=== PATIENT | female | born 1985 | race Caucasian/White ===

== ENCOUNTER 2021-11-18 13:30 | Inpatient (IN) | payer MEDICAID ==
[~2021-11-18] VITALS: Ht 157.5 cm; Wt 56.7 kg
[2021-11-18 13:34] VITALS: BP 142/86
--- NOTE | 2021-11-18 13:40 | NUR ---
PT TO WAIT IN LOBBY PER SETTER MOLDING AND COREMAKING MACHINES.
--- NOTE | 2021-11-18 14:37 | NUR ---
PT AMBULATED TO ER BED 7 WITH STEADY GAIT PER POST DOC FELLOWSHIP.
[2021-11-18] MEDS ORDERED: KETOROLAC 30 MG/ML VIAL IM ONE (14:45)
--- NOTE | 2021-11-18 14:47 | NUR ---
36 Y/O FEMALE BIBA ORIGINALLY FOR "POSSIBLE OD" ACCORDING TO BYSTANDER. PT WAS STERNAL RUBBED BY MEDIC ON ARRIVAL. PT STATED SHE IS FROM REHAB FACILITY C/O RIGHT FLANK PAIN 09/18. PT STATES SHE WAS RECENTLY SEEN AND DX WITH PYELONEPHITIS PRESCRIBED ABX. DENIES N/V. DENIES FEVER/CHILLS. DENIES PMH NKA
--- NOTE | 2021-11-18 14:50 | NUR ---
URINE OBTAINED AND SENT TO LAB
[2021-11-18 15:09] LABS: BASOPHILS % (AUTO) 0.3 % (0.0-2.0); EOSINOPHILS % (AUTO) 0.3 % (0.0-4.0); HEMATOCRIT 23.2 % (36-48); HEMOGLOBIN 7.5 g/dL (12.0-16.0); LYMPHOCYTES # (AUTO) 1.5 K/uL (2.5-16.5); LYMPHOCYTES % (AUTO) 13.2 % (20.5-51.1); MEAN CORPUSCULAR HEMOGLOBIN 25 pg (27-31); MEAN CORPUSCULAR HGB CONC 32 g/dL (33-37); MEAN CORPUSCULAR VOLUME 77.5 fL (80-94); MONOCYTES # (AUTO) 0.8 K/uL (0.8-1.0); MONOCYTES % (AUTO) 6.6 % (1.7-9.3); NEUTROPHILS # (AUTO) 9.2 K/uL (1.8-7.7); NEUTROPHILS % (AUTO) 79.6 % (42.2-75.2); PLATELET COUNT (AUTO) 583 K/uL (140-450); RED CELL DISTRIBUTION WIDTH 17.6 % (11.6-13.7); WHITE BLOOD COUNT (AUTO) 11.5 K/uL (4.8-10.8)
--- NOTE | 2021-11-18 15:19 | NUR ---
PT ASLEEP IN BED. HOB ELEVATED. SIDE RAILS X1. RESP EVEN AND UNLABORED
[2021-11-18 15:26] LABS: ALBUMIN 2.7 g/dL (3.4-5.0); ANION GAP 13.7 (8-16); CARBON DIOXIDE 26.8 mmol/L (21-32); CREATININE 0.6 mg/dL (0.6-1.3); TOTAL BILIRUBIN 0.4 mg/dL (0.0-1.0)
[2021-11-18 15:29] LABS: POTASSIUM 2.5 mmol/L (3.5-5.1)
[2021-11-18] MEDS ORDERED: KCL 20 MEQ/WATER INJ PREMIX 200 ML IV ONE (15:30)
[2021-11-18] MEDS ORDERED: NACL 0.9% 1,000 ML IV ONE (15:35)
[2021-11-18 15:46] LABS: BILIRUBIN,URINE 2+ (NEGATIVE); BLOOD, URINE 1+ (NEGATIVE); LEUKOCYTE ESTERASE ,URINE TRACE (NEGATIVE); NITRITE, URINE NEGATIVE (NEGATIVE); UGLUCOSE NEGATIVE (NEGATIVE)
[2021-11-18 16:01] LABS: APPEARANCE,URINE HAZY (CLEAR); COLOR,URINE AMBER (YELLOW)
[2021-11-18 16:09] LABS: WBC,URINE 80-100 /HPF (0-5)
[2021-11-18] MEDS ORDERED: cefTRIAXone 1,000 MG VIAL ONE (16:54)
[2021-11-18] MEDS ORDERED: WATER STERILE 10 ML MC ONE (16:55)
--- NOTE | 2021-11-18 17:30 | NUR ---
PT TO CT
--- NOTE | 2021-11-18 17:54 | NUR ---
PT BACK FROM CT.
--- NOTE | 2021-11-18 18:25 | NUR ---
PATIENT IS SLEEPING . PT WILL BE ADMITTED TO TELE. PENDING ORDERS TO FOLLOW. K+ 2.5 AND NOTED. WILL CONTINUE TO MONITOR PATIENT
--- NOTE | 2021-11-18 19:00 | NUR ---
PT TAKENT TO CT VIA YANETH
--- NOTE | 2021-11-18 19:03 | NUR ---
PT TO CT
[2021-11-18] MEDS ORDERED: MORPHINE SULFATE 2 MG/ML SYR IVP PRN (19:15)
[2021-11-18] MEDS ORDERED: DOCUSATE SODIUM 100 MG GELCAP PO PRN (19:15)
[2021-11-18] MEDS ORDERED: POTASSIUM CHLORIDE 10 MEQ TABER PO PRN (19:15)
[2021-11-18] MEDS ORDERED: ONDANSETRON 4 MG/2 ML VIAL IVP PRN ×2 (19:15)
[2021-11-18] MEDS ORDERED: ACETAMINOPHEN 325 MG TAB PO PRN (19:15)
--- NOTE | 2021-11-18 21:05 | NUR ---
Patient will be admitted to [facility]. Admited to TELEMETRY. Will go to [facility] [address]. Belongings list completed. Report to MIGEL.
[2021-11-18 21:15] VITALS: BP 95/67
--- NOTE | 2021-11-18 21:20 | NUR ---
GET THE REPORT FROM ER NURSE , PATIENT IS LYING ON BED, PATIENT IS ALERT ORIENTED X 4, ALL FALL PRECAUTION MEASURE ARE IN PLACE, CALL LIGHT IS WITHIN THE REACH, WILL CONTINUE TO MONITOR PATIENT.
[2021-11-18] MEDS ORDERED: PIPERACILLIN/TAZOBACTAM 3.375 GM VIAL IV ONE (21:48)
--- NOTE | 2021-11-18 23:00 | NUR ---
PATIENT IS LYING ON BED, VITAL SIGN IS WITHIN THE NORMAL RANGE,NO ANY COMPLAIN OF SHORTNESS OF BREATH AT THSI TIME, ALL SCHEDULE MEDICATION IS GIVEN PER DOCTOR ORDER, CALL LIGHT IS WITHIN THE REACH, WILL CONTINUE TO MONITOR PATIENT.
[2021-11-18] MEDS: PIPERACILLIN/TAZOBACTAM 3.375 GM in DEXTROSE 5% 50 ML IV SCH (23:03)
[2021-11-18] MEDS: MORPHINE SULFATE 2 MG/ML SYR IVP PRN (23:54)
--- NOTE | 2021-11-18 23:58 | NUR ---
PATIENT IS COMPLAINING OF PAIN 6/10 IN HER LOWER BACK, MEDICATED WITH MORPHINE 2MG IV PRN FOR PAIN PER DOCTOR ORDER, VITAL SIGN IS WITHIN THE NORMAL RANGE, YOLY;L LIGHT IS WITHIN THE REACH, WILL CONTINUE TO MONITOR PATIENT.
[2021-11-19] VITALS: BP 112/58
[2021-11-19] MEDS ORDERED: MAG SULF 2000 MG/WATER PREMIX 50 ML IV PRN
[2021-11-19] MEDS ORDERED: PIPERACILLIN/TAZOBACTAM 3.375 GM VIAL IV ONE (03:53)
[2021-11-19 04:00] VITALS: BP 114/57
[2021-11-19] MEDS: MORPHINE SULFATE 2 MG/ML SYR IVP PRN ×4 (04:00→22:24)
[2021-11-19] MEDS: PIPERACILLIN/TAZOBACTAM 3.375 GM in DEXTROSE 5% 50 ML IV SCH ×3 (04:02→21:00)
[2021-11-19 05:48] LABS: BARBITURATE, URINE NEGATIVE ng/ml (NEG <=200); BENZODIAZEPINE, URINE NEGATIVE ng/mL (NEG <=200); CANNABINOID, URINE NEGATIVE ng/mL (NEG <=50); COCAINE, URINE NEGATIVE ng/mL (NEG <=300); OPIATE, URINE NEGATIVE ng/mL (NEG <=2000); PHENCYCLIDINE SCREEN,URINE NEGATIVE ng/mL (NEG <=25)
--- NOTE | 2021-11-19 05:53 | NUR ---
PATIENT IS COMPLAINING OF DIARRHEA X1, PATIENT WANTS MEDICATION, MASSAGE DOCTOR JANA, DOCTOR REPLIED BACK WITH WILL SEE PATIENT IN 1 HOUR,WILL FOLLOW DOCTOR ORDER, CALL LIGHT IS WITHIN THE REACH, WILL CONTINUE TO MONITOR PATIENT.
--- NOTE | 2021-11-19 07:22 | NUR ---
GAVE THE REPORT TO MORNING NURSE LORI FOR CONTINUOS OF CARE, PATIENT IS STABLE.
--- NOTE | 2021-11-19 07:23 | NUR ---
RECEIVED REPORT FROM SENIOR SCRUM MASTER NURSE FOR CONTINUITY OF CARE. PT IN BED AT THIS TIME. PRESSING CALL LIGHT ASKING FOR MORE MORPHINE. INFORMED PT THAT MORPHINE NOT DUE YET. PT UPSET AT HEARING THIS. PT IS ALERT AND ORIENTED X4 ABLE TO FOLLOW COMMANDS, ABLE TO MAKE NEEDS KNOWN. RESPIRATIONS ARE EVEN AND UNLABORED ON ROOM AIR. NO SIGNS OF DISTRESS NOTED. PT HAS IV TO L AC, 22G. CALL LIGHT WITHIN REACH. ALL SAFETY MEASURES IN PLACE. WILL CONTINUE TO MONITOR.
[2021-11-19 08:00] VITALS: BP 109/72
--- NOTE | 2021-11-19 08:35 | NUR ---
ADMINISTERED SCHEDULED MEDICATIONS. EDUCATED PT ON MEDS ADMINISTERED. PT VERBALIZED UNDERSTANDING. WILL CONTINUE TO MONITOR.
--- NOTE | 2021-11-19 08:45 | NUR ---
PT COMPLAINING OF PAIN. STATES PAIN IS 6/10. MEDICATED. WILL CONTINUE TO MONITOR.
--- NOTE | 2021-11-19 09:15 | NUR ---
PATIENT HAS BEEN SCREENED AND CATEGORIZED LOW NUTRITION RISK. PATIENT WILL BE SEEN WITHIN 7 DAYS OF ADMISSION. 11/25/[address]
[2021-11-19 09:42] LABS: BASOPHILS % (AUTO) 0.1 % (0.0-2.0); EOSINOPHILS % (AUTO) 0.2 % (0.0-4.0); HEMATOCRIT 23.1 % (36-48); HEMOGLOBIN 7.6 g/dL (12.0-16.0); LYMPHOCYTES # (AUTO) 1.6 K/uL (2.5-16.5); LYMPHOCYTES % (AUTO) 19.3 % (20.5-51.1); MEAN CORPUSCULAR HEMOGLOBIN 26 pg (27-31); MEAN CORPUSCULAR HGB CONC 33 g/dL (33-37); MEAN CORPUSCULAR VOLUME 78.1 fL (80-94); MONOCYTES # (AUTO) 0.5 K/uL (0.8-1.0); NEUTROPHILS # (AUTO) 6.2 K/uL (1.8-7.7); NEUTROPHILS % (AUTO) 74.4 % (42.2-75.2); PLATELET COUNT (AUTO) 578 K/uL (140-450); RED BLOOD CELL COUNT(AUTO) 2.95 MIL/uL (4.20-5.40); RED CELL DISTRIBUTION WIDTH 17.6 % (11.6-13.7); WHITE BLOOD COUNT (AUTO) 8.3 K/uL (4.8-10.8)
--- NOTE | 2021-11-19 09:45 | NUR ---
WENT TO CHECK ON PT. PT SLEEPING AT THIS TIME. WILL CONTINUE TO MONITOR.
[2021-11-19 10:17] LABS: ANION GAP 13.2 (8-16); CARBON DIOXIDE 26.6 mmol/L (21-32); CREATININE 0.6 mg/dL (0.6-1.3)
[2021-11-19 10:20] LABS: POTASSIUM 2.8 mmol/L (3.5-5.1)
[2021-11-19 12:00] VITALS: BP 113/79
[2021-11-19] MEDS ORDERED: POTASSIUM CHLORIDE 40 MEQ, LIDOCAINE MPF 1% 25 MG in NACL 0.9% 250 ML IV SCH (12:00)
--- NOTE | 2021-11-19 12:29 | NUR ---
DC PLANNING SW ATTEMPTED TO MEET WITH PATIENT AT BEDSIDE TO COMPLETE ASSESSMENT. PATIENT REPORTED NOT FEELING WELL AND STRUGGLED TO RESPOND TO SW PROMPTS. PT REQUESTED SW COME BACK. SW TO FOLLOW UP Addendum: 11/19/21 at 1551 by Marli KING second attempt made to meet with pt at bedside to complete assessment. patient reported address on file as parents address and reported that she would not be returning. patient reported she was previously receiving care at [facility] for 8 weeks but did not indicate how long ago. patient reports having a housing voucher for [facility]. patient reports being ambulatory with dme assistance; dmitri. patient identified miguel (mother)[phone] as emergency contact and reported that she did not want mother called. patient struggled to further engage in assessment and refused to complete assessment. sw provided patient with emergency assistance, low cost housing and homeless resources. Addendum: 11/19/21 at 1553 by Marli KING lorie provided patient with substance use resources
[2021-11-19] MEDS: ACETAMINOPHEN 325 MG TAB PO PRN (12:41)
--- NOTE | 2021-11-19 12:42 | NUR ---
PT COMPLAINING OF HEADACHE. ADMINISTERED TYLENOL. WILL CONTINUE TO MONITOR.
--- NOTE | 2021-11-19 15:18 | NUR ---
DC PLANNING: THE PATIENT BIB EMS AFTER SHE PASSED OUT. C/O RIGHT FLAN PAIN AND DYSURIA, STATES SHE WAS PRESCRIBED PO ABX AFTER DX OF PYELONEPHRITIS. ALSO STATES PAIN OVER SURGICAL SITE AFTER HAVING BACK SURGERY IN OCTOBER. SHE ALSO C/O POSSIBLE STD WITH LESIONS. TOX SCREEN POSITIVE FOR METH, K+ 2.8, CRP 23.4. GIVEN ZOSYN AND ROCEPHIN IN ED, CONTINUED ON ZOSYN. CM AND SW ATTEMPTED TO SPEAK WITH THE PATIENT AT BEDSIDE, THE PATIENT STATED THAT SHE WAS SLEEPING AND DIDN'T WANT TO BE DISTURBED. WAS ABLE TO ASK PATIENT ABOUT LIVING IN [place], SHE STATES THAT SHE LIVES IN [place] BUT DID NOT WANT TO GIVE ADDRESS. ASKED IF SHE HAD ANY NEEDS, SHE STATED THAT HER SPC WAS IN [place] AND THAT SHE NEEDS ONE HERE, CM ENDORSED THAT THIS IS AN OTC ITEM AND NOT DISPENSABLE BY HOSPITAL. PATIENT ALSO STATES SHE HAS TRANSPORT WHEN SHE'S DISCHARGED. CONVERSATION THEN ENDED PATIENT DID NOT WANT TO ENGAGE FURTHER. CM WILL FOLLOW.
[2021-11-19 16:00] VITALS: BP 120/83
--- NOTE | 2021-11-19 16:02 | NUR ---
PT COMPLAINING OF DIFFICULTY BREATHING. CHECKED PT 02 SAT, SHE IS AT 95%. PT STATES SHE PREFERS TO BE ON 02. PT GIVEN 02 AT 2L VIA NC. PT TAKES IT OFF AND PUTS IT BACK ON.
--- NOTE | 2021-11-19 19:38 | NUR ---
ENDORSED PT TO COMMERCIAL DIRECTOR NURSE FOR CONTINUITY OF CARE. PT IS STABLE.
[2021-11-19 22:58] VITALS: BP 120/71
[2021-11-20] MEDS: ACETAMINOPHEN 325 MG TAB PO PRN ×2 (03:59→20:53)
[2021-11-20 04:00] VITALS: BP 133/95
[2021-11-20] MEDS: PIPERACILLIN/TAZOBACTAM 3.375 GM in DEXTROSE 5% 50 ML IV SCH ×3 (04:25→20:43)
[2021-11-20] MEDS: MORPHINE SULFATE 2 MG/ML SYR IVP PRN ×4 (04:46→23:14)
[2021-11-20 06:11] LABS: ANION GAP 13.1 (8-16); CARBON DIOXIDE 25.8 mmol/L (21-32); CREATININE 0.6 mg/dL (0.6-1.3)
[2021-11-20 06:22] LABS: BASOPHILS # (AUTO) 0.1 K/uL (0.00-0.22); BASOPHILS % (AUTO) 0.6 % (0.0-2.0); EOSINOPHILS % (AUTO) 0.4 % (0.0-4.0); HEMATOCRIT 24.3 % (36-48); HEMOGLOBIN 7.8 g/dL (12.0-16.0); LYMPHOCYTES # (AUTO) 2.2 K/uL (2.5-16.5); LYMPHOCYTES % (AUTO) 25.8 % (20.5-51.1); MEAN CORPUSCULAR HEMOGLOBIN 25 pg (27-31); MEAN CORPUSCULAR HGB CONC 32 g/dL (33-37); MEAN CORPUSCULAR VOLUME 78.2 fL (80-94); MONOCYTES # (AUTO) 0.6 K/uL (0.8-1.0); MONOCYTES % (AUTO) 7.5 % (1.7-9.3); NEUTROPHILS # (AUTO) 5.6 K/uL (1.8-7.7); NEUTROPHILS % (AUTO) 65.7 % (42.2-75.2); PLATELET COUNT (AUTO) 670 K/uL (140-450); RED BLOOD CELL COUNT(AUTO) 3.11 MIL/uL (4.20-5.40); RED CELL DISTRIBUTION WIDTH 17.9 % (11.6-13.7); WHITE BLOOD COUNT (AUTO) 8.5 K/uL (4.8-10.8)
[2021-11-20 06:25] LABS: POTASSIUM 2.9 mmol/L (3.5-5.1)
--- NOTE | 2021-11-20 07:30 | NUR ---
PT A/O X4. ABLE TO MAKE NEEDS KNOWN. VSS. NO SOB OR RESPIRATORY DISTRESS. ON RA WITH O2 SAT @ 100%. NEEDS ALL MET AT THIS TIME. SAFETY MEASURE IN PLACE.
[2021-11-20 08:00] VITALS: BP 121/85
[2021-11-20] MEDS ORDERED: POTASSIUM CHLORIDE 40 MEQ, LIDOCAINE MPF 1% 25 MG in NACL 0.9% 250 ML IV SCH (08:30)
--- NOTE | 2021-11-20 09:00 | NUR ---
ROUNDED ON PT. SEE NEW ORDERS.
[2021-11-20] MEDS ORDERED: HYDROmorphone 1 MG/ML AMP IVP SCH (09:18)
[2021-11-20] MEDS ORDERED: LIDOCAINE OINTMENT 5% 35 GM TUBE TP SCH (13:00)
--- NOTE | 2021-11-20 13:00 | NUR ---
PT C/O PERINEAL PAIN AND ASK FOR NICOTINE PATCH. MD CONTACTED AND MD INPUTTED NEW ORDERS.
[2021-11-20] MEDS: NICOTINE TRANSD SYS 14 MG/24 HR PATCH TD SCH (13:13)
--- NOTE | 2021-11-20 14:45 | NUR ---
RECEIVED CALL FROM LAB. PT IS POSITIVE FOR MRSA OF NARES. CONTACTED MD FOR BACTROBAN ORDER. NEW ORDERS INPUTTED.
[2021-11-20] MEDS: MUPIROCIN CA NASAL 2% 1GM TUBE NS SCH (15:20)
[2021-11-20 15:41] LABS: ANION GAP 13.9 (8-16); CARBON DIOXIDE 24.9 mmol/L (21-32); CREATININE 0.7 mg/dL (0.6-1.3); POTASSIUM 3.8 mmol/L (3.5-5.1)
[2021-11-20] MEDS: CHLORHEXADINE GLUC 2% CLOTH TP SCH (15:47)
[2021-11-20 16:00] VITALS: BP 122/80
--- NOTE | 2021-11-20 18:30 | NUR ---
PT REQUESTING HOT PACKS. MD CONTACTED. ORDER FOR HOTPACKS
--- NOTE | 2021-11-20 19:12 | NUR ---
PRN MORPHINE GIVEN TO PT. ENDORSED PLAN OF CARE TO NIGHTSHIFT NURSE FOR CONTINUITY OF CARE.
--- NOTE | 2021-11-20 19:13 | NUR ---
RECEIVED PATIENT FROM TOD RN, IN BED RESTING. PATIENT ALERT AND ORIENTED X 4. ABLE TO TELL NURSING WHY SHE IS IN THE HOSPITAL. PATIENT DENIES ANY PAIN/DISCOMFORT AT THIS TIME. PATIENT INSIST ON KNOWING WHEN THE HER ABILIO PRN FOR MANAGEMENT. NURSING EDUCATION ON TAKING MEDICATION NEEDED AND NOT BY TIME IT IS DUE. PATIENT IS BREATHING WITHOUT DISTRESS OR DIFFICULTY. PATIENT WAS INFORMED TO USE CALL LIGHT FOR ALL NEEDS ANS ASSISTANCE. PATIENT UNDERSTOOD AND AGREED. [email or web address]
[2021-11-20 20:00] VITALS: BP 123/88
[2021-11-20] MEDS: ZOLPIDEM 10 MG TAB PO PRN (20:53)
[2021-11-20] MEDS ORDERED: CLOTRIMAZOLE (VAG) 1% 45 GM TUBE VG SCH (21:00)
--- NOTE | 2021-11-20 21:30 | NUR ---
PATIENT WAS ABLE TO TAKE MEDICATION WITHOUT INCIDENT. EDUCATION ON VAGINAL MEDICATION. PATIENT INSERTED MEDICATION WITH NURSING MONITORING FOR SAFELY AND CORRECTLY. NURSING EDUCATED FOR THE SIDE EFFECTS. PATIENT UNDERSTOOD AND AGREED. DENIES ANY PAIN/DISCOMFORT AT THIS TIME. PATIENT IS BREATHING WITHOUT DISTRESS OR DIFFICULTY. PATIENT WAS INFORMED TO USE CALL LIGHT FOR ALL NEEDS AND ASSISTANCE. [email or web address]
[2021-11-20] MEDS: MICONAZOLE VAG 2% 45 GM TUBE VG SCH (21:36)
--- NOTE | 2021-11-20 23:37 | NUR ---
MORPHINE WAS GIVEN BY COVERING RN FOR PAIN MANAGEMENT. NURSING WILL CONTINUE TO MONITOR. DENIED FOR ANOTHER SLEEPING PRN. WAS GIVEN AT 2100 MEDICATIONS. [email or web address]
--- NOTE | 2021-11-21 01:20 | NUR ---
PATIENT CONTINUES TO ASK FOR PAIN MEDICATIONS BEFORE THE TIME TO GIVE. PATIENT EDUCATION AND PROPER USAGE FOR PAIN MEDICATIONS. NURSING WENT OVER RELAXATION TECHNIQUE. CALL LIGHT WITHIN REACH. [email or web address]
--- NOTE | 2021-11-21 03:04 | NUR ---
PATIENT WAS NOTED IN BED ASLEEP. PATIENT'S CHEST NOTED RISING AND FALLING WITHOUT DISTRESS. NO NOTED S/S OF PAIN/DISCOMFORT. SIDE RAILS UP X 3 FOR SAFETY. CALL LIGHT WITHIN REACH FOR ASSISTANCE. [email or web address]
[2021-11-21 04:00] VITALS: BP 118/86
--- NOTE | 2021-11-21 04:30 | NUR ---
MD WAS CALLED FOR PATIENT HAVING WITHDRAWALS AND ANXIETY. PATIENT THOUGHT SHE WAS NOT BREATHING AND RESPIRATIONS WAS NOTED AT 18 AND OXYGEN SATURATION WAS 99-100%. NURSING WILL NOTIFY PATIENT OF ANY CHANGES TO MEDICATION OR ORDERS. [email or web address]
[2021-11-21] MEDS: PIPERACILLIN/TAZOBACTAM 3.375 GM in DEXTROSE 5% 50 ML IV SCH ×3 (04:52→21:51)
--- NOTE | 2021-11-21 05:04 | NUR ---
NO NEW ORDERS AT THIS TIME. NURSING WILL ENDORSE TO AM SHIFT FOR POSSIBLE NEW ORDERS. PATIENT REMAIN IN THE BED ASLEEP. NO NOTED S/S OF PAIN/DISCOMFORT AT THIS TIME. NO NOTED RESPIRATORY DISTRESS. PATIENT'S BREATHING WAS NOTED UNLABORED AND EVEN. PATIENT KEPT CLEAN AND DRY. [email or web address]
[2021-11-21] MEDS: MORPHINE SULFATE 2 MG/ML SYR IVP PRN ×3 (05:19→17:59)
[2021-11-21 06:51] LABS: BASOPHILS % (AUTO) 0.4 % (0.0-2.0); EOSINOPHILS # (AUTO) 0.1 K/uL (0-0.4); HEMOGLOBIN 8.2 g/dL (12.0-16.0); LYMPHOCYTES # (AUTO) 2.4 K/uL (2.5-16.5); LYMPHOCYTES % (AUTO) 31.2 % (20.5-51.1); MONOCYTES # (AUTO) 0.7 K/uL (0.8-1.0); MONOCYTES % (AUTO) 9.2 % (1.7-9.3)
[2021-11-21 07:03] LABS: EOSINOPHILS % (AUTO) 0.9 % (0.0-4.0); MEAN CORPUSCULAR HEMOGLOBIN 26 pg (27-31); MEAN CORPUSCULAR HGB CONC 33 g/dL (33-37); MEAN CORPUSCULAR VOLUME 79.5 fL (80-94); NEUTROPHILS # (AUTO) 4.6 K/uL (1.8-7.7); NEUTROPHILS % (AUTO) 58.3 % (42.2-75.2); PLATELET COUNT (AUTO) 742 K/uL (140-450); RED BLOOD CELL COUNT(AUTO) 3.14 MIL/uL (4.20-5.40); RED CELL DISTRIBUTION WIDTH 17.8 % (11.6-13.7); WHITE BLOOD COUNT (AUTO) 7.8 K/uL (4.8-10.8)
--- NOTE | 2021-11-21 07:23 | NUR ---
ENDORSED PATIENT TO PATRICIA CLEMENT FOR CONTINUITY OF CARE. PATIENT WAS STABLE AT THE CHANGE OF SHIFT. [email or web address]
[2021-11-21 07:24] LABS: ANION GAP 14.1 (8-16); CARBON DIOXIDE 26.4 mmol/L (21-32); CREATININE 0.7 mg/dL (0.6-1.3); POTASSIUM 3.5 mmol/L (3.5-5.1)
[2021-11-21 08:00] VITALS: BP 129/82
[2021-11-21] MEDS: MUPIROCIN CA NASAL 2% 1GM TUBE NS SCH (09:49)
[2021-11-21] MEDS: NICOTINE TRANSD SYS 14 MG/24 HR PATCH TD SCH (09:49)
[2021-11-21] MEDS: ACETAMINOPHEN 325 MG TAB PO PRN ×2 (09:49→19:54)
[2021-11-21] MEDS: CHLORHEXADINE GLUC 2% CLOTH TP SCH (09:54)
[2021-11-21] MEDS ORDERED: ACET-9527 PO (10:46)
[2021-11-21] MEDS ORDERED: IBUP-2213 PO (10:46)
[2021-11-21] MEDS ORDERED: AMOX-999 PO (10:46)
[2021-11-21] MEDS ORDERED: ACET-8386 PO (10:47)
[2021-11-21 18:27] VITALS: BP 141/75
--- NOTE | 2021-11-21 18:40 | NUR ---
0730 Pt. in bed, sleeping, call light in reach 1200 Pt. medicated for pain, vss, call light in reach, up to sink to clean herself 1400 Pt. sleeping, vss 1800 Pt. needs met this shift, vss, medicated for pain x2 with good results, call light in reach.
[2021-11-21 19:49] VITALS: BP 125/70
[2021-11-21] MEDS: MICONAZOLE VAG 2% 45 GM TUBE VG SCH (21:00)
[2021-11-21] MEDS: ZOLPIDEM 10 MG TAB PO PRN (21:50)
--- NOTE | 2021-11-21 21:58 | NUR ---
PATIENT ADMINISTERED OWN VAGISIL CREAM. DANYA ALBERT RN
[2021-11-22 03:01] VITALS: BP 88/66
[2021-11-22] MEDS: MORPHINE SULFATE 2 MG/ML SYR IVP PRN ×3 (03:03→17:06)
--- NOTE | 2021-11-22 03:03 | NUR ---
PATIENT NOTES LEFT SIDE STABBING PAIN 11/18. NEEDED MORPHINE GIVEN. VITAL SIGNS UP TO DATE. DANYA ALBERT RN
--- NOTE | 2021-11-22 03:17 | NUR ---
PATIENT REQUEST FOR SOMETHING TO HELP HER WITHDRAWALS PRIOR TO ATTENDING A WOMEN'S RETIREMENT SHE SAID FOR SOBRIETY ON TUESDAY. EDUCATION ABOUT ALCOHOL WITHDRAWAL TREATMENT BUT PATIENT SAYS SHE IS NOT DRINKING NOW. DIGITAL MARKETING MANAGER DID NOT EDUCATE FENTANYL WITHDRAWAL TREATMENT WHICH IS DISCRETION OF PROVIDER. DANYA ALBERT RN
[2021-11-22] MEDS: PIPERACILLIN/TAZOBACTAM 3.375 GM in DEXTROSE 5% 50 ML IV SCH ×3 (05:00→21:00)
[2021-11-22 07:27] LABS: BASOPHILS # (AUTO) 0.1 K/uL (0.00-0.22); BASOPHILS % (AUTO) 0.8 % (0.0-2.0); EOSINOPHILS % (AUTO) 0.3 % (0.0-4.0); HEMATOCRIT 28.8 % (36-48); HEMOGLOBIN 9.6 g/dL (12.0-16.0); LYMPHOCYTES # (AUTO) 1.5 K/uL (2.5-16.5); LYMPHOCYTES % (AUTO) 15.4 % (20.5-51.1); MEAN CORPUSCULAR HEMOGLOBIN 26 pg (27-31); MEAN CORPUSCULAR HGB CONC 33 g/dL (33-37); MONOCYTES # (AUTO) 0.7 K/uL (0.8-1.0); NEUTROPHILS # (AUTO) 7.2 K/uL (1.8-7.7); NEUTROPHILS % (AUTO) 76.5 % (42.2-75.2); PLATELET COUNT (AUTO) 761 K/uL (140-450); RED BLOOD CELL COUNT(AUTO) 3.69 MIL/uL (4.20-5.40); RED CELL DISTRIBUTION WIDTH 17.6 % (11.6-13.7); WHITE BLOOD COUNT (AUTO) 9.4 K/uL (4.8-10.8)
[2021-11-22 07:58] LABS: ANION GAP 15.9 (8-16); CARBON DIOXIDE 21.9 mmol/L (21-32); CREATININE 0.7 mg/dL (0.6-1.3); POTASSIUM 3.8 mmol/L (3.5-5.1)
[2021-11-22 08:00] VITALS: BP 125/89
[2021-11-22] MEDS: MUPIROCIN CA NASAL 2% 1GM TUBE NS SCH (08:51)
[2021-11-22] MEDS: NICOTINE TRANSD SYS 14 MG/24 HR PATCH TD SCH (08:51)
[2021-11-22] MEDS: CHLORHEXADINE GLUC 2% CLOTH TP SCH (08:52)
[2021-11-22 12:24] VITALS: BP 125/89
[2021-11-22 16:00] VITALS: BP 101/64
--- NOTE | 2021-11-22 16:07 | NUR ---
PATIENT SIGNED DISCHARGE CONSENT AFTER DISCHARGE INSTRUCTION GIVEN, BUT WHEN INFECT DISEASE DOCTOR MAKE ROUND HERE, DISCHARGE PROCESS HOLD FOR ONE MORE DAY DUE TO PATIENT'S TEMPERATURE WAS 101F YESTERDAY AFTERNOON. PATIENT MIGHT DISCHARGE HOME TOMORROW IF STABLE AND INFECTION DOCTOR AGREE TO DISCHARGE. WILL CONTINUE TO MONITOR
--- NOTE | 2021-11-22 19:48 | NUR ---
ENDORSE PATIENT TO PM SHIFT NURSE WHILE PATIENT IS REST IN BED, STABLE WITH NO ACUTE DISTRESS NOTED EXCEPT CONTINUOUS BACK PAIN 2/2 HX OF SPINAL ABSCESS
[2021-11-22] MEDS: ACETAMINOPHEN 325 MG TAB PO PRN (20:04)
[2021-11-22] MEDS: MICONAZOLE VAG 2% 45 GM TUBE VG SCH (22:00)
--- NOTE | 2021-11-22 22:00 | NUR ---
C/O SLEEPLESSNESS - BP 124/ 65 , RR 18 , NE 78 , O2 SAT 98 % - WILL MEDICATE .
[2021-11-22] MEDS: ZOLPIDEM 10 MG TAB PO PRN (22:17)
--- NOTE | 2021-11-22 23:00 | NUR ---
SLEEPING , CALL LIGHT WITHIN REACH
--- NOTE | 2021-11-23 01:00 | NUR ---
hit the call light - awake - nid o2 sat 99% , bp 116/78 , pr 95 , c/o albino sherated at 9 - will medicate .
[2021-11-23] MEDS: MORPHINE SULFATE 2 MG/ML SYR IVP PRN ×2 (01:05→09:59)
[2021-11-23 04:00] VITALS: BP 115/65
--- NOTE | 2021-11-23 05:30 | NUR ---
per gloria - pt refused am blood draw - will endorse.
--- NOTE | 2021-11-23 06:30 | NUR ---
C/O PAIN SHE RATE IT 3- WILL GIVE TYLENOL FOR PAIN . CALL LIGHT WITHIN REACH .
[2021-11-23] MEDS: PIPERACILLIN/TAZOBACTAM 3.375 GM in DEXTROSE 5% 50 ML IV SCH ×3 (06:36→21:00)
[2021-11-23] MEDS: ACETAMINOPHEN 325 MG TAB PO PRN ×2 (06:40→14:33)
--- NOTE | 2021-11-23 07:04 | NUR ---
ENDORSED- PT - STAB , CALL LIGHT WITHIN REACH . Addendum: 11/23/21 at 1910 by Michelle Avila RN THE WORD STAB IN THE ABOVE NURSE'S NOTES IS AN ERROR ENTRY , INSTEAD OF STABLE - MNJINA
[2021-11-23 08:00] VITALS: BP 94/62
[2021-11-23] MEDS ORDERED: SHARK OIL/PHENYLEPHRINE 60 GM TUBE TP SCH (09:15)
[2021-11-23] MEDS ORDERED: SHARK OIL/PHENYLEPHRINE 60 GM TUBE TP PRN (09:19)
[2021-11-23 09:51] LABS: BASOPHILS % (AUTO) 0.4 % (0.0-2.0); EOSINOPHILS % (AUTO) 0.4 % (0.0-4.0); HEMATOCRIT 30.1 % (36-48); LYMPHOCYTES # (AUTO) 1.3 K/uL (2.5-16.5); MEAN CORPUSCULAR HEMOGLOBIN 26 pg (27-31); MEAN CORPUSCULAR HGB CONC 33 g/dL (33-37); MONOCYTES # (AUTO) 0.6 K/uL (0.8-1.0); MONOCYTES % (AUTO) 7.8 % (1.7-9.3); NEUTROPHILS % (AUTO) 75.4 % (42.2-75.2); PLATELET COUNT (AUTO) 717 K/uL (140-450); RED BLOOD CELL COUNT(AUTO) 3.85 MIL/uL (4.20-5.40); RED CELL DISTRIBUTION WIDTH 18.7 % (11.6-13.7)
[2021-11-23] MEDS: NICOTINE TRANSD SYS 14 MG/24 HR PATCH TD SCH (09:54)
[2021-11-23] MEDS: MUPIROCIN CA NASAL 2% 1GM TUBE NS SCH (09:58)
[2021-11-23] MEDS: CHLORHEXADINE GLUC 2% CLOTH TP SCH (09:58)
[2021-11-23 10:09] LABS: ANION GAP 14.4 (8-16); CARBON DIOXIDE 25.3 mmol/L (21-32); CREATININE 0.9 mg/dL (0.6-1.3); POTASSIUM 3.7 mmol/L (3.5-5.1)
[2021-11-23 16:00] VITALS: BP 99/66
[2021-11-23] MEDS: HYDROcodone/APAP 5/325 MG 1 TAB TAB PO PRN (16:46)
--- NOTE | 2021-11-23 19:49 | NUR ---
ENDORSE PATIENT TO PM SHIFT NURSE WHILE PATIENT STABLE AND REQUESTING FOR IV MORPHINE. PATIENT SHOWERED HERSELF IN ROOM WITHOUT CALL/INFORM NURSE. FLOOR IS WET.
--- NOTE | 2021-11-23 21:36 | NUR ---
IV SITE INFILTRATED - PT REFUSED FOR IV RE INSERTION - PT JUST HAVE IV ACCESS FOR IV ZOSYN - PT IS AFEBRILE SINCE Nov - REFERRED TO DR. BATES - PER HIM HOLD IV ABX AND IV RE INSERTION OF NOW - WILL ENDORSE .
--- NOTE | 2021-11-23 22:00 | NUR ---
INFILTRATED IV SITE - REMOVED - MIN BLEEDING - PT TOLERATED IT -IV NEEDLE INTACT - WILLCONT. TO MONITOR .
[2021-11-23] MEDS: MICONAZOLE VAG 2% 45 GM TUBE VG SCH (22:30)
--- NOTE | 2021-11-23 22:56 | NUR ---
C/O SLEEPLESSNESS - BP 117/78 , HR 98 , 02 SAT 98% - WILL MEDICATE .
[2021-11-23] MEDS: ZOLPIDEM 10 MG TAB PO PRN (22:57)
--- NOTE | 2021-11-24 01:49 | NUR ---
C/O PAIN - BP 117 / 78 , RR 18 , O2 SAT 98 % OK 98 - SHE RATES THE PAIN 6 - WILL MEDICATE .
[2021-11-24] MEDS: HYDROcodone/APAP 5/325 MG 1 TAB TAB PO PRN ×2 (01:53→09:36)
[2021-11-24 04:00] VITALS: BP 111/60
--- NOTE | 2021-11-24 04:00 | NUR ---
SLEEPING , BUT EASILY AROUSABLE BY SOUNDS , NO S/SX OF ACUTE DISTRESS NOTED , WILL CONT TO MONITOR .
[2021-11-24] MEDS: PIPERACILLIN/TAZOBACTAM 3.375 GM in DEXTROSE 5% 50 ML IV SCH (05:00)
--- NOTE | 2021-11-24 06:00 | NUR ---
ROUNDS , NO S/SX OF ACUTE DISTRESS NOTED AT THIS TIME , CALL LIGHT WITHIN REACH . NO COMPLAIN MADE .
--- NOTE | 2021-11-24 07:13 | NUR ---
ENDORSED - PT - STABLE , CALL LIGHT WITHIN REACH .
[2021-11-24 08:00] VITALS: BP 102/61
[2021-11-24] MEDS: NICOTINE TRANSD SYS 14 MG/24 HR PATCH TD SCH (09:36)
[2021-11-24] MEDS: MUPIROCIN CA NASAL 2% 1GM TUBE NS SCH (09:37)
[2021-11-24] MEDS: CHLORHEXADINE GLUC 2% CLOTH TP SCH (09:37)
[2021-11-24 10:34] VITALS: BP 102/61
--- NOTE | 2021-11-24 11:14 | NUR ---
DISCHARGE PATIENT HOME PER PCP ORDER AFTE BLOOD CULTURE RESULT BACK W/ NEGATIVE FOR ACUTE INFECTION. WRIST BAND REMOVED, IV ACCESS PULL OUT DURING 11/23/2021 PM SHIFT; DISCHARGE INSTRUCTION GIVEN, DISCHARGE EDUCATION GIVEN, DISCHARGE CONSENT SIGNED. PAIN MEDICATION GIVEN AT 0936, 11/24/2021
== END 2021-11-24 11:23 | disposition home or self-care (01) | DRG 463 ==
LOC: MED 13:30 → MTU 19:13 → MMU 20:21
PROVIDERS: ADMIT Family Medicine; ATTEND Family Medicine
DX: N12 Tubulo-interstitial nephritis, not specified as acute or chronic (principal); E43 Unspecified severe protein-calorie malnutrition; E87.1 Hypo-osmolality and hyponatremia; D64.9 Anemia, unspecified; Z20.822 Contact with and (suspected) exposure to COVID-19; E87.6 Hypokalemia; N75.0 Cyst of Bartholin's gland; Z87.891 Personal history of nicotine dependence; Z90.49 Acquired absence of other specified parts of digestive tract
CPT/HCPCS: 36415; 71045; 76770; 80048; 80053; 80305; 81001; 83605; 83690; 83735; 85025; 85651; 86140; 87040; 87070; 87081; 87086; 87186; 87491; 89055; 96361; 96365; 96372; 99285; J0696; J1170; J1644; J1885; J2001; J2270; J2543; J3480; J7030; J7060; Q0092; Q9967